=== PATIENT | female | born 1985 | race Caucasian/White ===

== ENCOUNTER 2023-06-08 00:27 | Emergency (ER) | payer OTHER ==
[2023-06-08 00:36] VITALS: BP 111/61; PULSE 78; RESP 18; TEMP 98.4; BMI 30.7
[2023-06-08 01:50] LABS: BASO % 0.1 % (0-2.0); EOS % 0.5 % (0-4.5); HEMATOCRIT 38.4 % (32.4-45.2); HEMOGLOBIN 13.2 GM/dL (10.7-15.3); LYMPH % 14.2 % (8-40); MCH 30.1 pg (25.7-33.7); MCHC 34.4 g/dl (32.0-36.0); MEAN CELL VOLUME 87.6 fl (80-96); MEAN PLT VOLUME 7.3 fl (7.5-11.1); MONO % 5.4 % (3.8-10.2); NEUT % 79.8 % (42.8-82.8); PLATELET COUNT 336 10^3/uL (134-434); RBC 4.39 M/mm3 (3.60-5.2); RDW 13.5 % (11.6-15.6); WHITE BLOOD COUNT 12.2 K/mm3 (4.0-10.0)
[2023-06-08] MEDS: SODIUM CHLORIDE 0.9% 1000 ML INFUS.BAG IV STA (01:50)
[2023-06-08 02:10] LABS: POTASSIUM 3.9 mmol/L (3.5-5.1)
[2023-06-08 02:12] LABS: CALCIUM 9.6 mg/dL (8.5-10.1)
[2023-06-08 02:14] LABS: ALBUMIN 3.2 g/dl (3.4-5.0); BLOOD UREA NITROGEN 7.6 mg/dL (7-18)
[2023-06-08 02:16] LABS: CREATININE 0.6 mg/dL (0.55-1.3)
[2023-06-08 02:19] LABS: BILIRUBIN,TOTAL 0.2 mg/dL (0.2-1); TOT PROT 6.6 g/dl (6.4-8.2)
[2023-06-08 02:29] LABS: INR 1.01 (0.83-1.09); PROTHROMBIN TIME (PATIENT) 11.7 SEC (9.7-13.0)
[2023-06-08 02:32] LABS: ACTIVATED PTT 25.4 SECONDS (25.2-36.5)
[2023-06-08 04:42] LABS: EPI CELLS 4 /uL (0-25.1); HYALINE CASTS 0 /uL (0-3.1); URINE APPEARANCE CLEAR; URINE BACTERIA 7 /uL (0-1359); URINE BILIRUBIN NEGATIVE (NEGATIVE); URINE COLOR YELLOW; URINE GLUCOSE (UA) NEGATIVE (NEGATIVE); URINE KETONE 1+ (NEGATIVE); URINE LEUK ESTERASE NEGATIVE (NEGATIVE); URINE NITRITE NEGATIVE (NEGATIVE); URINE PROTEIN NEGATIVE (NEGATIVE); URINE RBC 3 /uL (0-23.9); URINE UROBILINOGEN 0.2 mg/dL (0.2-1.0); URINE WBC 1 /uL (0-25.8)
== END 2023-06-08 04:49 | disposition home or self-care (01) ==
LOC: JER 00:27
DX: O20.8 Other hemorrhage in early pregnancy (principal); O99.891 Other specified diseases and conditions complicating pregnancy; R55 Syncope and collapse; Z3A.15 15 weeks gestation of pregnancy
CPT/HCPCS: 36415; 76830-TC; 80053; 81003; 82962; 84484; 84702; 85025; 85610; 85730; 86850; 86900; 86901; 87086; 93005; 93010; 99285-25